=== PATIENT | male | born 1960 | race Caucasian/White ===

== ENCOUNTER 2016-10-23 06:27 | Inpatient (IN) | payer MEDICARE ==
[~2016-10-23] VITALS: Ht 175.3 cm; Wt 92.5 kg
[2016-10-23 10:26] LABS: HEMOGLOBIN 14.8 gm/dl (14.0-17.5); RED BLOOD COUNT 4.17 M/UL (4.20-5.50); WHITE BLOOD COUNT 5.5 K/UL (4.5-11.0)
[2016-10-23 10:42] LABS: BUN/CREATININE RATIO 16 (0-10)
[2016-10-23 15:59] LABS: HEMOGLOBIN 15.1 gm/dl (14.0-17.5); RED BLOOD COUNT 4.32 M/UL (4.20-5.50); WHITE BLOOD COUNT 9.1 K/UL (4.5-11.0)
[2016-10-24 05:25] LABS: HEMOGLOBIN 12.7 gm/dl (14.0-17.5); RED BLOOD COUNT 3.67 M/UL (4.20-5.50); WHITE BLOOD COUNT 5.6 K/UL (4.5-11.0)
[2016-10-24 05:38] LABS: BUN/CREATININE RATIO 30 (0-10)
[2016-10-24 16:32] LABS: BUN/CREATININE RATIO 27 (0-10)
[2016-10-25 05:06] LABS: HEMOGLOBIN 12.8 gm/dl (14.0-17.5); RED BLOOD COUNT 3.73 M/UL (4.20-5.50); WHITE BLOOD COUNT 5.5 K/UL (4.5-11.0)
[2016-10-25 05:33] LABS: BUN/CREATININE RATIO 30 (0-10)
[2016-10-26 03:33] LABS: HEMOGLOBIN 12.7 gm/dl (14.0-17.5); RED BLOOD COUNT 3.66 M/UL (4.20-5.50); WHITE BLOOD COUNT 4.6 K/UL (4.5-11.0)
[2016-10-26 03:57] LABS: BUN/CREATININE RATIO 23 (0-10)
[2016-10-27 04:39] LABS: HEMOGLOBIN 13.7 gm/dl (14.0-17.5); RED BLOOD COUNT 3.98 M/UL (4.20-5.50)
[2016-10-27 04:40] LABS: BUN/CREATININE RATIO 28 (0-10)
[2016-10-28 04:55] LABS: HEMOGLOBIN 13.5 gm/dl (14.0-17.5); RED BLOOD COUNT 3.88 M/UL (4.20-5.50); WHITE BLOOD COUNT 6.8 K/UL (4.5-11.0)
[2016-10-28 05:09] LABS: BUN/CREATININE RATIO 48 (0-10)
[2016-10-29 04:52] LABS: HEMOGLOBIN 13.9 gm/dl (14.0-17.5); RED BLOOD COUNT 3.96 M/UL (4.20-5.50); WHITE BLOOD COUNT 7.5 K/UL (4.5-11.0)
[2016-10-29 05:07] LABS: BUN/CREATININE RATIO 40 (0-10)
[2016-10-30 05:33] LABS: HEMOGLOBIN 12.6 gm/dl (14.0-17.5); RED BLOOD COUNT 3.57 M/UL (4.20-5.50); WHITE BLOOD COUNT 12.3 K/UL (4.5-11.0)
[2016-10-30 06:47] LABS: BUN/CREATININE RATIO 78 (0-10)
[2016-10-31 05:50] LABS: HEMOGLOBIN 11.2 gm/dl (14.0-17.5); RED BLOOD COUNT 3.23 M/UL (4.20-5.50)
[2016-10-31 05:56] LABS: WHITE BLOOD COUNT 17.2 K/UL (4.5-11.0)
[2016-10-31 06:59] LABS: BUN/CREATININE RATIO 58 (0-10)
[2016-10-31 15:28] LABS: BUN/CREATININE RATIO 59 (0-10)
[2016-11-01 04:33] LABS: HEMOGLOBIN 9.3 gm/dl (14.0-17.5); RED BLOOD COUNT 2.7 M/UL (4.20-5.50); WHITE BLOOD COUNT 9.9 K/UL (4.5-11.0)
[2016-11-01 05:03] LABS: BUN/CREATININE RATIO 68 (0-10)
[2016-11-01 21:34] LABS: GLUCOSE,CSF 70 mg/dL (50-80); TOTAL PROTEIN,CSF 36 mg/dL (20-45)
[2016-11-02 04:34] LABS: HEMOGLOBIN 8.9 gm/dl (14.0-17.5); RED BLOOD COUNT 2.53 M/UL (4.20-5.50)
[2016-11-02 04:57] LABS: BUN/CREATININE RATIO 52 (0-10)
[2016-11-02 21:32] LABS: HEMOGLOBIN 8.8 gm/dl (14.0-17.5)
[2016-11-03 04:18] LABS: HEMOGLOBIN 8.3 gm/dl (14.0-17.5); RED BLOOD COUNT 2.37 M/UL (4.20-5.50); WHITE BLOOD COUNT 6.4 K/UL (4.5-11.0)
[2016-11-03 04:43] LABS: BUN/CREATININE RATIO 50 (0-10)
[2016-11-03 12:33] LABS: HEMOGLOBIN 8.4 gm/dl (14.0-17.5)
[2016-11-04 05:06] LABS: HEMOGLOBIN 9.3 gm/dl (14.0-17.5)
[2016-11-04 05:09] LABS: RED BLOOD COUNT 2.63 M/UL (4.20-5.50)
[2016-11-04 05:25] LABS: BUN/CREATININE RATIO 40 (0-10)
[2016-11-05 05:33] LABS: HEMOGLOBIN 9.8 gm/dl (14.0-17.5); RED BLOOD COUNT 2.79 M/UL (4.20-5.50); WHITE BLOOD COUNT 3.7 K/UL (4.5-11.0)
[2016-11-05 05:49] LABS: BUN/CREATININE RATIO 34 (0-10)
[2016-11-06 05:03] LABS: HEMOGLOBIN 9.4 gm/dl (14.0-17.5); RED BLOOD COUNT 2.66 M/UL (4.20-5.50)
[2016-11-06 05:14] LABS: BUN/CREATININE RATIO 28 (0-10)
--- NOTE | 2016-11-07 01:03 | NUR ---
11/07/16 0039 25 BEAT RUN OF V-TACH (9 SECS) HR 159. PULSE OX SHOWS PT DID NOT PERFUSE ARRYTHMIA VERY WELL. PT LAYING IN BED. DENIES ANY CHEST PAIN OR DISCOMFORT. V/S B/P 101/50 (63) P 58 RESP 17 SPO2 98 11/07/[address] MANJARREZ INFOMRED OF ARRYTHMIA. NEW ORDERS REC
--- NOTE | 2016-11-07 01:54 | NUR ---
11/07/16 0138 K+ AND MG+ RESULTS. K+ 4.0, MG+ 1.[address] MANJARREZ 11/07/16 0149 MG REPLACE ORDERS STARTED 1ST DOSE OF 1GM OF MAGNESIUM PER IVPB.
[2016-11-07] MEDS ORDERED: BRILINTA90 MG PO (11:00)
[2016-11-07] MEDS ORDERED: CRESTOR40 MG PO (11:00)
[2016-11-07] MEDS ORDERED: COREG 12.5MG12.5 MG PO (11:01)
[2016-11-07] MEDS ORDERED: BUMETANIDE1 MG PO (11:01)
[2016-11-07] MEDS ORDERED: CARVEDILOL12.5 MG PO (11:02)
[2016-11-07] MEDS ORDERED: NEURONTIN 400400 MG PO (11:04)
[2016-11-07] MEDS ORDERED: CREON DR 6,0001 EACH PO (11:04)
[2016-11-07] MEDS ORDERED: GLUCAGON EMERGEN1 MG INJ (11:06)
[2016-11-07] MEDS ORDERED: HUMALOG100 UNIT/2 SC (11:12)
[2016-11-07] MEDS ORDERED: ISOSORBIDE MONO30 MG PO (11:15)
[2016-11-07] MEDS ORDERED: LANTUS SOL100 UNIT/1 SQ (11:18)
[2016-11-07] MEDS ORDERED: NITROSTAT 0.40.4 MG SL (11:20)
[2016-11-07] MEDS ORDERED: DIOVAN40 MG PO (11:21)
[2016-11-07] MEDS ORDERED: TRAMADOL HCL50 MG PO (11:21)
[2016-11-07] MEDS ORDERED: B COMPLEX WITH1 EACH PO (11:23)
[2016-11-07] MEDS ORDERED: CORLANOR (11:25)
[2016-11-07] MEDS ORDERED: NEURONTIN 100100 MG PO ×2 (11:36)
[2016-11-07] MEDS ORDERED: HYDROCODON-ACE1 EAC6 PO (11:36)
[2016-11-07] MEDS ORDERED: ALL DAY ALLERGY10 M2 PO (11:36)
[2016-11-07] MEDS ORDERED: ZESTRIL 40 MG T40 MG PO (11:36)
[2016-11-07] MEDS ORDERED: HYDROCHLOROTHIA25 MG PO (11:36)
[2016-11-07] MEDS ORDERED: METOPROLOL SUCC25 MG PO (11:36)
[2016-11-07] MEDS ORDERED: NORVASC 5 MG TAB5 MG PO (11:36)
[2016-11-07] MEDS ORDERED: ZOFRAN ODT 4 MG4 MG PO (11:36)
[2016-11-09 04:36] LABS: HEMOGLOBIN 9.9 gm/dl (14.0-17.5); RED BLOOD COUNT 2.86 M/UL (4.20-5.50); WHITE BLOOD COUNT 4.4 K/UL (4.5-11.0)
[2016-11-09 04:42] LABS: BUN/CREATININE RATIO 15 (0-10)
[2016-11-10] MEDS ORDERED: LIPITOR TAB 2020 MG PO (12:30)
[2016-11-10] MEDS ORDERED: SYNTHROID25 MCG PO (12:31)
[2016-11-10] MEDS ORDERED: FOLIC ACID1 MG PO (12:31)
[2016-11-10] MEDS ORDERED: PROTONIX40 MG PO (12:32)
[2016-11-10] MEDS ORDERED: LACTULOSE10 GM/15 M PO (12:32)
[2016-11-10] MEDS ORDERED: SPIRONOLACTONE25 MG PO (12:33)
[2016-11-10] MEDS ORDERED: THIAMINE HCL50 MG PO (12:33)
[2016-11-10] MEDS ORDERED: ENSURE HIGH PR237 ML PO (12:34)
[2016-11-10] MEDS ORDERED: LISINOPRIL20 MG PO (12:34)
== END 2016-11-10 12:30 | disposition home health service (06) | DRG 870 ==
LOC: PROG CARE 07:38 → CCU 07:38 → PROG CARE 11-05 16:29 → MED SURG 4 11-08 13:31
PROVIDERS: Emergency Medicine; Internal Medicine; Internal Medicine Critical Care Medicine; ADMIT Hospitalist
PROC: 5A1955Z Respiratory Ventilation, Greater than 96 Consecutive Hours (ICD-10-PCS; principal; 2016-10-23)
PROC: 0BH17EZ Insertion of Endotracheal Airway into Trachea, Via Natural or Artificial Opening (ICD-10-PCS; 2016-10-23)
PROC: 05HN33Z Insertion of Infusion Device into Left Internal Jugular Vein, Percutaneous Approach (ICD-10-PCS; 2016-10-24)
PROC: 0BJ08ZZ Inspection of Tracheobronchial Tree, Via Natural or Artificial Opening Endoscopic (ICD-10-PCS; 2016-10-25)
PROC: 009U3ZX Drainage of Spinal Canal, Percutaneous Approach, Diagnostic (ICD-10-PCS; 2016-11-01)
PROC: 4A10X4Z Monitoring of Central Nervous Electrical Activity, External Approach (ICD-10-PCS; 2016-11-02)
DX: A40.3 Sepsis due to Streptococcus pneumoniae (principal); J96.00 Acute respiratory failure, unspecified whether with hypoxia or hypercapnia; J13 Pneumonia due to Streptococcus pneumoniae; I50.23 Acute on chronic systolic (congestive) heart failure; G93.41 Metabolic encephalopathy; F10.231 Alcohol dependence with withdrawal delirium; E44.0 Moderate protein-calorie malnutrition; D61.818 Other pancytopenia; K76.6 Portal hypertension; R04.2 Hemoptysis; E87.70 Fluid overload, unspecified; E83.51 Hypocalcemia; E83.39 Other disorders of phosphorus metabolism; Z68.30 Body mass index [BMI] 30.0-30.9, adult; K74.60 Unspecified cirrhosis of liver; B19.20 Unspecified viral hepatitis C without hepatic coma; I48.91 Unspecified atrial fibrillation; Z16.24 Resistance to multiple antibiotics; Z51.5 Encounter for palliative care; R53.81 Other malaise; Z51.89 Encounter for other specified aftercare; F17.210 Nicotine dependence, cigarettes, uncomplicated; Z95.5 Presence of coronary angioplasty implant and graft; E78.5 Hyperlipidemia, unspecified; Z90.49 Acquired absence of other specified parts of digestive tract; Z88.6 Allergy status to analgesic agent; Z88.8 Allergy status to other drugs, medicaments and biological substances; D69.6 Thrombocytopenia, unspecified; Z95.1 Presence of aortocoronary bypass graft; R19.5 Other fecal abnormalities; D64.9 Anemia, unspecified; Z79.899 Other long term (current) drug therapy; Z79.4 Long term (current) use of insulin; J40 Bronchitis, not specified as acute or chronic
CPT/HCPCS: ECHO; 31500; 36415; 36600; 70450; 71010; 76705; 78452; 80048; 80053; 80162; 80202; 80307; 82140; 82272; 82330; 82550; 82553; 82607; 82728; 82746; 82803; 82945; 83540; 83550; 83605; 83735; 84100; 84132; 84157; 84436; 84439; 84443; 84484; 85014; 85018; 85025; 85027; 85610; 85730; 86140; 86803; 87015; 87040; 87045; 87046; 87070; 87077; 87086; 87102; 87116; 87186; 87205; 87210; 87390; 89051; 89055; 92526; 92610; 93005; 93017; 93306; 93970; 93971; 94002; 94003; 94640; 95816; 97110; 97116; 97530; 97535; A4628; A9502; C1751; C9113; J1120; J1160; J1335; J1630; J1650; J1940; J1956; J2060; J2248; J2250; J2270; J2543; J2785; J3370; J3411; J3475; J3480; J7030; J7040; J7050; J7070

== ENCOUNTER → 2016-11-29 | Outpatient (CLI) | payer MEDICARE ==
[~2016-11-29] MED LIST: ALL DAY ALLERGY10 M2 PO; B COMPLEX WITH1 EACH PO; BRILINTA90 MG PO; BUMETANIDE1 MG PO; CARVEDILOL12.5 MG PO; COREG 12.5MG12.5 MG PO; CORLANOR; CREON DR 6,0001 EACH PO; CRESTOR40 MG PO; DIOVAN40 MG PO; ENSURE HIGH PR237 ML PO; FOLIC ACID1 MG PO; GLUCAGON EMERGEN1 MG INJ; HUMALOG100 UNIT/2 SC; HYDROCHLOROTHIA25 MG PO; HYDROCODON-ACE1 EAC6 PO; ISOSORBIDE MONO30 MG PO; LACTULOSE10 GM/15 M PO; LANTUS SOL100 UNIT/1 SQ; LIPITOR TAB 2020 MG PO; LISINOPRIL20 MG PO; METOPROLOL SUCC25 MG PO; NEURONTIN 100100 MG PO; NEURONTIN 400400 MG PO; NITROSTAT 0.40.4 MG SL; NORVASC 5 MG TAB5 MG PO; PROTONIX40 MG PO; SPIRONOLACTONE25 MG PO; SYNTHROID25 MCG PO; THIAMINE HCL50 MG PO; TRAMADOL HCL50 MG PO; ZESTRIL 40 MG T40 MG PO; ZOFRAN ODT 4 MG4 MG PO
== END ==
LOC: RAD 17:00
DX: I48.91 Unspecified atrial fibrillation (principal); I51.7 Cardiomegaly; I10 Essential (primary) hypertension; F17.210 Nicotine dependence, cigarettes, uncomplicated; R94.2 Abnormal results of pulmonary function studies
CPT/HCPCS: 71020; 94060